=== PATIENT | female | born 1985 | race Caucasian/White ===

== ENCOUNTER 2023-04-21 21:11 | Emergency (ER) | payer OTHER ==
[~2023-04-21] VITALS: Ht 165.1 cm; Wt 72.6 kg
[2023-04-21 21:33] VITALS: BP 129/87; PULSE 89; RESP 17; TEMP 98.3; O2SAT 97
[2023-04-21 21:40] VITALS: BP 129/87; PULSE 89; RESP 17; TEMP 98.3; O2SAT 97
[2023-04-21] MEDS ORDERED: LEVO-481 PO (23:08)
[2023-04-21] MEDS ORDERED: METH4TAB1 PO (23:08)
[2023-04-21] MEDS ORDERED: cefTRIAXone 1,000 MG VIAL ONE (23:13)
[2023-04-21] MEDS ORDERED: LIDOCAINE MPF 1% 5 ML ONE (23:13)
[2023-04-21] MEDS ORDERED: cefTRIAXone 1,000 MG in LIDOCAINE MPF 1% 2.1 ML IM ONE (23:15)
== END 2023-04-21 23:23 | disposition home or self-care (01) ==
LOC: MED 21:11
DX: J20.9 Acute bronchitis, unspecified (principal); Z98.890 Other specified postprocedural states; Z79.899 Other long term (current) drug therapy; Z79.2 Long term (current) use of antibiotics
CPT/HCPCS: 96372; 99283; J0696; J2001